=== PATIENT | female | born 1990 | race Caucasian/White ===

== ENCOUNTER → 2016-08-06 | Outpatient (CLI) | payer OTHER ==
[~2016-08-06] MED LIST: PRENTAB40 PO; ZOFR4SOL PO; ZOLO50TA PO
--- NOTE | 2016-08-06 16:56 | REP ---
Obstetric sonography: History: Supervision of for anatomy. Findings: Scanning through the gravid uterus demonstrates a viable single intrauterine gestation in a cephalic lie. motion is observed and heart rate is recorded at 139 beats per minute. An anterior grade 0 placenta is seen without evidence of previa or abruption. Amniotic fluid is subjectively normal. Closed cervical length is 5.6 cm measured transabdominally. No extrauterine abnormality is observed. Exam quality was inhibited by maternal body habitus and position. No anomaly is seen. spine, four-chamber heart and outflow tract views, and facial profile views are less than optimal. The following additional anatomic structures are identified and felt to be sonographically unremarkable: cranium, choroid plexus, cavum, cerebellum and posterior fossa, nose and lips, lungs, diaphragm, left-sided stomach, abdominal wall cord insertion, three-vessel umbilical cord, kidneys and bladder, upper and lower extremities. Biometry chart: BPD 4.4 cm = 19 weeks 1 day HC 16.2 cm = 19 weeks 0 days AC 14.4 cm = 19 weeks 5 days FL 2.8 cm = 18 weeks 5 days HL 2.8 cm = 18 weeks 6 days CD 2.0 cm = 19 weeks 2 days HC/AC ratio normal 1.13. Cephalic index normal 0.75. Estimated weight 280 grams, 0 pounds 9 ounces, 55th percentile for 19 weeks 0 days. Impression: 1. Viable single intrauterine gestation of 19 weeks 1 day by today's composite sonographic criteria. BABS by today's sonography is December 30, 2016. 2. anatomic survey is incomplete regarding facial profile, heart views, and spine evaluation. Signed by Josue Edmonds MD 08/06/2016 05:04 P
== END ==
LOC: M RAD 10:38
PROVIDERS: ATTEND Obstetrics & Gynecology
DX: Z34.82 Encounter for supervision of other normal pregnancy, second trimester (principal)

== ENCOUNTER → 2016-08-29 | Outpatient (CLI) | payer MEDICAID ==
--- NOTE | 2016-08-29 16:36 | REP ---
Obstetric sonography: History: Supervision of , followup anatomy. Comparison study: . Follow-up facial profile heart views and spine evaluation. Findings: Scanning through the gravid uterus demonstrates a viable single intrauterine gestation in a cephalic lie. motion is observed and heart rate is recorded at 147 beats per minute. An anterior grade 1 placenta is seen without evidence of previa or abruption. Amniotic fluid is subjectively normal. Closed cervical length is 3.8 cm. No extrauterine abnormality is observed. There has been appropriate interval growth. The spine is still less than optimally seen due to position. The following additional anatomic structures are identified and felt to be sonographically unremarkable: cranium, choroid plexus, cavum, cerebellum posterior fossa, face and profile, lungs, four-chamber heart with left and right ventricular outflow tract views, diaphragm, left-sided stomach, abdominal wall cord insertion, three-vessel umbilical cord, kidneys and bladder, upper and lower extremities. Biometry chart: BPD 5.4 cm = 22 weeks 3 days Head circumference 20.2 cm = 22 weeks 2 days Abdominal circumference 18.6 cm = 23 weeks 3 days Femur length 3.8 cm = 22 weeks 1 day Humeral length 3.7 cm = 23 weeks 0 days HC/AC ratio normal at 1.09, cephalic index normal 0.74, estimated weight 532 grams, 1 pound 2 ounces, 60th percentile for 22 weeks 2 days. Impression: Viable single intrauterine gestation at 22 weeks 4 days by today's composite sonographic criteria. Expected gestational age estimate based on prior sonography is 22 weeks 3 days. BABS by prior sonography . spine views still less than optimally seen. anatomic survey otherwise complete. Signed by Josue Edmonds MD 08/29/2016 04:50 P
== END ==
LOC: M RAD 14:43
PROVIDERS: ATTEND Obstetrics & Gynecology
DX: Z36 Encounter for antenatal screening of mother (principal); Z3A.22 22 weeks gestation of pregnancy

== ENCOUNTER → 2016-09-02 | Outpatient (CLI) | payer MEDICAID, OTHER ==
[2016-09-02 08:17] LABS: MEAN CORPUSCULAR HGB CONC 33.4 g/dl (32.0-36.5); RED CELL DISTRIBUTION WIDTH 13.7 % (11.5-14.5); WHITE BLOOD COUNT 11.7 K/mm3 (4.0-10.0)
[2016-09-02 08:25] LABS: ALBUMIN 2.9 GM/DL (3.2-5.2); ALBUMIN/GLOBULIN RATIO 0.78 (1.00-1.93); ALKALINE PHOSPHATASE 118 U/L (45-117); ALT/SGPT 19 U/L (12-78); AST/SGOT 8 U/L (15-37); BILIRUBIN,DIRECT 0.1 MG/DL (0.0-0.2); BILIRUBIN,TOTAL 0.5 MG/DL (0.2-1.0); BLOOD UREA NITROGEN 7 MG/DL (7-18); CREATININE FOR GFR 0.44 MG/DL (0.55-1.02); GLOMERULAR FILTRATION RATE > 60.0 (>60); TOTAL PROTEIN 6.6 GM/DL (6.4-8.2); URIC ACID 4.3 MG/DL (2.6-6.0)
== END ==
LOC: M LAB 07:52
PROVIDERS: ATTEND Obstetrics & Gynecology
DX: O99.212 Obesity complicating pregnancy, second trimester (principal)

== ENCOUNTER → 2016-09-02 | Outpatient (CLI) | payer MEDICAID | LOC: M LAB 06:52 | PROVIDERS: ATTEND Obstetrics & Gynecology | DX: Z53.9 Procedure and treatment not carried out, unspecified reason (principal) ==

== ENCOUNTER → 2016-10-14 | Outpatient (CLI) | payer OTHER ==
[~2016-10-14] MED LIST changes: +EYE5SOL OP; +FLON1SPR; +TESS100C PO
--- NOTE | 2016-10-14 11:31 | REP ---
Clinical: Anatomical evaluation. Comparison: 08/29/2016 . Findings: Examination demonstrates a single live intrauterine in cephalic presentation. motion is identified by technologist. Placenta is noted anteriorly and grade one without evidence for placenta previa or abruption. Amniotic fluid volume is normal. Cervix measures 4.8 cm in length and appears closed. No evidence for nuchal cord. Gestational age by LMP 28 weeks 6 days with BABS 12/31/2016 . Gestational age by current measurements 29 weeks 6 days with BABS 12/24/2016 . FHR equals 141 beats per minute. JEANETTE equals 13.4 cm (9.2 - 23.1) Estimated weight 1592 grams ( 82nd percentile). Anatomical assessment demonstrates normal structures including cranium, choroid plexus, cavum, cerebellum/posterior fossa, diaphragm, stomach, three-vessel cord, kidneys/bladder, spine, and lower extremities. Impression: 1. Single live intrauterine in cephalic presentation demonstrating appropriate interval growth. 2. In conjunction with prior examination anatomical assessment is complete and normal. Signed by Sundar Velásquez MD 10/14/2016 11:23 A
== END ==
LOC: M RAD 10:31
PROVIDERS: ATTEND Obstetrics & Gynecology
DX: Z36 Encounter for antenatal screening of mother (principal); Z3A.29 29 weeks gestation of pregnancy

== ENCOUNTER 2016-10-18 04:04 | Emergency (ER) | payer OTHER ==
[~2016-10-18] VITALS: Ht 154.9 cm; Wt 136.1 kg
[~2016-10-18 04:04] MED LIST changes: -EYE5SOL OP; -FLON1SPR; -TESS100C PO
[2016-10-18 04:14] VITALS: BP 132/72
[2016-10-18] MEDS ORDERED: EYE5SOL OP (04:19)
[2016-10-18] MEDS ORDERED: FLON1SPR (06:13)
[2016-10-18] MEDS ORDERED: TESS100C PO (06:13)
== END 2016-10-18 05:20 | disposition left against medical advice (07) ==
LOC: M ED 04:24
DX: H92.09 Otalgia, unspecified ear (principal); Z53.29 Procedure and treatment not carried out because of patient's decision for other reasons

== ENCOUNTER 2016-10-18 05:19 | Emergency (ER) | payer OTHER ==
[~2016-10-18] VITALS: Ht 154.9 cm; Wt 136.1 kg
[~2016-10-18 05:19] MED LIST changes: +EYE5SOL OP
[2016-10-18] MEDS ORDERED: FLON1SPR (06:13)
[2016-10-18] MEDS ORDERED: TESS100C PO (06:13)
[2016-10-18] MEDS ORDERED: BENZONATATE 100 MG CAP PO ONE (06:15)
[2016-10-18 06:22] VITALS: BP 125/71
== END 2016-10-18 06:31 | disposition home or self-care (01) ==
LOC: M ED 05:39
DX: O99.513 Diseases of the respiratory system complicating pregnancy, third trimester (principal); J06.9 Acute upper respiratory infection, unspecified; Z3A.30 30 weeks gestation of pregnancy; Z91.030 Bee allergy status

== ENCOUNTER → 2016-11-06 | Outpatient (CLI) | payer OTHER ==
[~2016-11-06] MED LIST changes: +FLON1SPR; +TESS100C PO
[2016-11-06 14:25] LABS: MEAN CORPUSCULAR HEMOGLOBIN 29.1 pg (27.0-33.0); MEAN CORPUSCULAR HGB CONC 33.3 g/dl (32.0-36.5); MEAN CORPUSCULAR VOLUME 87.2 fl (80.0-96.0); RED CELL DISTRIBUTION WIDTH 13.7 % (11.5-14.5); WHITE BLOOD COUNT 10.7 K/mm3 (4.0-10.0)
[2016-11-06 14:41] LABS: ALBUMIN 2.5 GM/DL (3.2-5.2); ALBUMIN/GLOBULIN RATIO 0.71 (1.00-1.93); ALKALINE PHOSPHATASE 166 U/L (45-117); ALT/SGPT 17 U/L (12-78); AST/SGOT 7 U/L (15-37); BILIRUBIN,DIRECT 0.1 MG/DL (0.0-0.2); BILIRUBIN,TOTAL 0.4 MG/DL (0.2-1.0); BLOOD UREA NITROGEN 4 MG/DL (7-18); CREATININE FOR GFR 0.47 MG/DL (0.55-1.02); GLOMERULAR FILTRATION RATE > 60.0 (>60); URIC ACID 3.5 MG/DL (2.6-6.0)
== END ==
LOC: M LAB 12:23
PROVIDERS: ATTEND Obstetrics & Gynecology
DX: O99.213 Obesity complicating pregnancy, third trimester (principal); Z3A.00 Weeks of gestation of pregnancy not specified

== ENCOUNTER → 2016-11-08 | Outpatient (REF) | payer OTHER ==
[2016-11-08 17:50] LABS: CREATININE, SERUM 0.5 MG/DL (0.6-1.0)
[2016-11-08 19:07] LABS: CREATININE CLEARANCE, URINE 118.2 ML/MIN (75-115)
== END ==
LOC: M LAB REF 16:41
PROVIDERS: ATTEND Obstetrics & Gynecology
DX: O99.213 Obesity complicating pregnancy, third trimester (principal); Z3A.00 Weeks of gestation of pregnancy not specified

== ENCOUNTER → 2016-12-05 | Outpatient (CLI) | payer OTHER ==
--- NOTE | 2016-12-05 12:16 | REP ---
OBSTETRIC SONOGRAPHY: HISTORY: 36-week gestation size versus date discrepancy. FINDINGS: Scanning through the gravid uterus demonstrates a viable single intrauterine gestation in a cephalic lie. motion is observed and heart rate is recorder 137 beats per minute. Anterior grade 3 placenta is seen without evidence of previa. Amniotic fluid is subjectively normal. Closed cervical length is 3.5 cm. No extrauterine abnormality is observed. There has been appropriate interval growth. Exam quality was inhibited to some degree by maternal body habitus. cranium, choroid plexus, cavum, and left-sided stomach are seen. Biometry Chart: BPD 9.0 cm = 36 weeks 4 days HC 32.7 cm = 37 weeks 1 day AC 38.0 cm = more than 6 weeks greater than expected. FL 7.1 cm = 36 weeks 1 day HL 6.3 cm = 36 weeks 2 days HC/AC ratio normal 0.86 Cephalic index normal 0.78. Estimated weight 3825 grams, 8 pounds 6 ounces, greater 97th percentile for 36 weeks 2 days. S/D ratio of the umbilical cord artery by Doppler is normal at 2.39. JEANETTE is normal 9.5 cm IMPRESSION: Viable single intrauterine gestation at 36 weeks 4 days. There is appropriate interval growth. Expected gestational age estimate based on prior sonography is 36 weeks 3 days. BABS by prior sonography December 30, 2016. Limited anatomic visualization. Signed by Josue Edmonds MD 12/05/2016 01:17 P
== END ==
LOC: M RAD 10:34 → M LAB 10:34
PROVIDERS: ATTEND Obstetrics & Gynecology Obstetrics
DX: O26.843 Uterine size-date discrepancy, third trimester (principal); Z3A.36 36 weeks gestation of pregnancy

== ENCOUNTER → 2017-08-20 | Outpatient (REF) | payer OTHER, MEDICAID ==
[2017-08-20 19:35] LABS: BASO # 0.1 10^3/uL (0.0-0.2); BASO % 0.7 % (0.0-1.0); EOS # 0.3 10^3/uL (0.0-0.50); EOS % 3.7 % (0.0-3.0); HEMATOCRIT 38.8 % (36.0-47.0); HEMOGLOBIN 12.4 g/dl (12.0-16.0); IMMATURE GRANULOCYTE % 0.3 % (0-0); LYMPH # 2.5 10^3/uL (1.5-6.5); MEAN CORPUSCULAR HEMOGLOBIN 27.4 pg (27.0-33.0); MEAN CORPUSCULAR VOLUME 85.7 fl (80.0-96.0); MONO # 0.6 10^3/uL (0.0-0.8); MONO % 8.4 % (0.0-5.0); NEUTROPHILS # 4.1 10^3/uL (1.8-7.7); NEUTROPHILS % 53.9 % (36.0-66.0); PLATELET COUNT, AUTOMATED 352 10^3/uL (150-450); RED BLOOD COUNT 4.53 10^6/uL (4.00-5.40); RED CELL DISTRIBUTION WIDTH 12.8 % (11.5-14.5); WHITE BLOOD COUNT 7.7 10^3/uL (4.0-10.0)
[2017-08-20 20:07] LABS: ALBUMIN 3.9 GM/DL (3.2-5.2); ALBUMIN/GLOBULIN RATIO 1.08 (1.00-1.93); ALKALINE PHOSPHATASE 139 U/L (45-117); ALT/SGPT 21 U/L (12-78); ANION GAP 8 MEQ/L (8-16); AST/SGOT 12 U/L (7-37); BILIRUBIN,TOTAL 0.7 MG/DL (0.2-1.0); BLOOD UREA NITROGEN 9 MG/DL (7-18); CALCIUM LEVEL 8.6 MG/DL (8.5-10.1); CARBON DIOXIDE LEVEL 25 MEQ/L (21-32); CHLORIDE LEVEL 108 MEQ/L (98-107); CHOLESTEROL LEVEL 139 MG/DL (<200); CHOLESTEROL RISK RATIO 3.971 (<5); CREATININE FOR GFR 0.61 MG/DL (0.55-1.30); GLOMERULAR FILTRATION RATE > 60.0 (>60); GLUCOSE, FASTING 92 MG/DL (70-100); HDL CHOLESTEROL 35 MG/DL (>40); NON-HDL-C 104 MG/DL; POTASSIUM SERUM 3.8 MEQ/L (3.5-5.1); SODIUM LEVEL 141 MEQ/L (136-145); TOTAL PROTEIN 7.5 GM/DL (6.4-8.2); TRIGLYCERIDES LEVEL 165 MG/DL (<150)
== END ==
LOC: M LAB REF 18:45
DX: Z68.43 Body mass index [BMI] 50.0-59.9, adult (principal); E66.01 Morbid (severe) obesity due to excess calories; D64.9 Anemia, unspecified

== ENCOUNTER → 2017-09-11 | Outpatient (CLI) | payer OTHER | LOC: M SLEEP 19:46 | DX: Z01.811 Encounter for preprocedural respiratory examination (principal); G47.33 Obstructive sleep apnea (adult) (pediatric); G47.61 Periodic limb movement disorder | CPT/HCPCS: 95810 ==

== ENCOUNTER → 2017-11-14 | Outpatient (CLI) | payer MEDICAID, OTHER | LOC: M SLEEP 19:51 | DX: G47.33 Obstructive sleep apnea (adult) (pediatric) (principal) | CPT/HCPCS: 95811 ==

== ENCOUNTER 2018-04-09 23:43 | Emergency (ER) | payer OTHER, MEDICAID ==
[2018-04-10 00:52] LABS: BILIRUBIN, URINE MANUAL NEGATIVE (NEGATIVE); BLOOD URINE MANUAL RFX POSITIVE (NEGATIVE); GLUCOSE, URINE (UA) MANUAL NEGATIVE (NEGATIVE); KETONE, URINE MANUAL NEGATIVE (NEGATIVE); NITRITE, URINE MANUAL RFX NEGATIVE (NEGATIVE); PROTEIN, URINE MANUAL REFLEX 3+ mg/dL (NEGATIVE); SP GRAVITY,URINE MANUAL REFLEX 1.025 (1.002-1.035); UROBILINOGEN, URINE MANUAL NORMAL (NORMAL)
[2018-04-10 00:53] LABS: MICROSCOPIC INDICATED? RFX YES (NO)
[2018-04-10 01:03] LABS: RBC, URINE TNTC /hpf (0-3); SQUAMOUS EPITHELIAL CELL URINE SMALL AMOUNT /hpf (SMALL AMT); WBC, URINE MAN RFX TNTC /hpf (0-3)
[2018-04-10 01:04] LABS: BACTERIA, URINE SMALL AMOUNT; HYALINE CAST, URINE NONE SEEN /lpf (0-1)
[2018-04-10 01:05] LABS: AMORPHOUS SEDIMENT, URINE SMALL AMOUNT (NEGATIVE); MICROSCOPIC EXAM PERFORMED; MUCUS, URINE SMALL AMOUNT (NEGATIVE)
[2018-04-10] MEDS: KETOROLAC 30 MG/ML VIAL (J1885) IV (02:45)
[2018-04-10 03:23] LABS: BASO # 0.1 10^3/uL (0.0-0.2); BASO % 0.5 % (0.0-1.0); EOS # 0.4 10^3/uL (0.0-0.50); EOS % 4.1 % (0.0-3.0); HEMATOCRIT 36.1 % (36.0-47.0); HEMOGLOBIN 11.3 g/dl (12.0-15.5); IMMATURE GRANULOCYTE % 0.2 % (0-3.0); LYMPH # 2.9 10^3/uL (1.5-6.5); LYMPH % 29.8 % (24.0-44.0); MEAN CORPUSCULAR HEMOGLOBIN 27.4 pg (27.0-33.0); MEAN CORPUSCULAR HGB CONC 31.3 g/dl (32.0-36.5); MEAN CORPUSCULAR VOLUME 87.4 fl (80.0-96.0); MONO # 0.9 10^3/uL (0.0-0.8); NEUTROPHILS # 5.4 10^3/uL (1.8-7.7); NEUTROPHILS % 56.4 % (36.0-66.0); PLATELET COUNT, AUTOMATED 304 10^3/uL (150-450); RED BLOOD COUNT 4.13 10^6/uL (4.00-5.40); RED CELL DISTRIBUTION WIDTH 13.3 % (11.5-14.5); WHITE BLOOD COUNT 9.6 10^3/uL (4.0-10.0)
[2018-04-10 03:44] LABS: ALBUMIN 3.9 GM/DL (3.2-5.2); ALBUMIN/GLOBULIN RATIO 1.15 (1.00-1.93); ALKALINE PHOSPHATASE 121 U/L (45-117); ALT/SGPT 35 U/L (12-78); ANION GAP 13 MEQ/L (8-16); AST/SGOT 30 U/L (7-37); BILIRUBIN,DIRECT 0.2 MG/DL (0.0-0.2); BILIRUBIN,TOTAL 0.9 MG/DL (0.2-1.0); BLOOD UREA NITROGEN 11 MG/DL (7-18); CALCIUM LEVEL 8.7 MG/DL (8.5-10.1); CARBON DIOXIDE LEVEL 20 MEQ/L (21-32); CHLORIDE LEVEL 110 MEQ/L (98-107); CREATININE FOR GFR 0.63 MG/DL (0.55-1.30); GLOMERULAR FILTRATION RATE > 60.0 (>60); GLUCOSE, FASTING 88 MG/DL (70-100); LIPASE 69 U/L (73-393); POTASSIUM SERUM 4.1 MEQ/L (3.5-5.1); SODIUM LEVEL 143 MEQ/L (136-145); TOTAL PROTEIN 7.3 GM/DL (6.4-8.2)
[2018-04-10] MEDS: NORCO 5/325MG TABLET (BULK FOR ED) PO (04:11)
== END 2018-04-10 04:26 | disposition home or self-care (01) ==
LOC: M ED 23:43
DX: N30.90 Cystitis, unspecified without hematuria (principal); K80.70 Calculus of gallbladder and bile duct without cholecystitis without obstruction; F32.9 Major depressive disorder, single episode, unspecified; Z98.84 Bariatric surgery status; Z91.030 Bee allergy status; Z88.8 Allergy status to other drugs, medicaments and biological substances; Z79.899 Other long term (current) drug therapy
CPT/HCPCS: 76705

== ENCOUNTER 2018-04-16 20:15 | Emergency (ER) | payer OTHER, MEDICAID | END 2018-04-16 20:58 | disposition home or self-care (01) | LOC: M ED 20:15 | DX: K22.6 Gastro-esophageal laceration-hemorrhage syndrome (principal); Z98.84 Bariatric surgery status; Z79.899 Other long term (current) drug therapy; Z91.030 Bee allergy status; Z88.8 Allergy status to other drugs, medicaments and biological substances | CPT/HCPCS: 99283 ==

== ENCOUNTER → 2018-12-11 | Outpatient (CLI) | payer OTHER ==
[~2018-12-11] MED LIST changes: +BACT800T5 PO; +BUPR150T3; +CITA20TA6; +CVS1CHW13 PO; +FAMO1TAB11
--- NOTE | 2018-12-11 13:05 | REP ---
Clinical: Anatomical evaluation. Comparison: None . Findings: Examination demonstrates a single live intrauterine in breech presentation. motion is identified by technologist. Placenta is noted posterior and grade grade zero without evidence for placenta previa or abruption. Amniotic fluid volume is normal. Cervix measures 2.9 cm in length and appears closed. No evidence for nuchal cord. Gestational age by LMP 18 weeks 1 day with BABS 05/13/1990 . Gestational age by current measurements 18 weeks 4 days with BABS 05/10/2019 . FHR equals 134 beats per minute. BPD 4.2 cm 18 weeks 5 days HC 15.5 cm 18 weeks 3 days AC 12.9 cm 18 weeks 3 days FL 2.8 cm 18 weeks 3 days HL 2.7 cm 18 weeks 4 days HC/AC ratio 1.20 Estimated weight 242 grams ( 61st percentile). Anatomical assessment demonstrates normal structures including cranium, choroid plexus, cavum, lungs, stomach, cord insertion, kidneys/bladder, and extremities. Impression: 1. Single live intrauterine in breech presentation demonstrating appropriate interval growth. 2. Limited evaluation of the posterior fossa, facial features, heart/ventricular outflow tracts, diaphragm, three-vessel cord, and spine warrant reevaluation and follow-up. Electronically Signed by Sundar Velásquez MD 12/11/2018 12:57 P
== END ==
LOC: M RAD 11:43
PROVIDERS: ATTEND Midwife
DX: Z36.89 Encounter for other specified antenatal screening (principal); Z3A.18 18 weeks gestation of pregnancy; O32.1XX0 Maternal care for breech presentation, not applicable or unspecified

== ENCOUNTER 2018-12-13 15:11 | Emergency (ER) | payer OTHER ==
[~2018-12-13] VITALS: Ht 152.4 cm; Wt 119.4 kg
[~2018-12-13 15:11] MED LIST changes: -CVS1CHW13 PO
[2018-12-13 16:12] LABS: BASO # 0.1 10^3/uL (0.0-0.2); BASO % 0.4 % (0.0-1.0); EOS # 0.2 10^3/uL (0.0-0.50); EOS % 1.7 % (0.0-3.0); HEMATOCRIT 34.9 % (36.0-47.0); HEMOGLOBIN 11.2 g/dl (12.0-15.5); LYMPH # 2.8 10^3/uL (1.5-6.5); LYMPH % 24.3 % (24.0-44.0); MEAN CORPUSCULAR HEMOGLOBIN 27.4 pg (27.0-33.0); MEAN CORPUSCULAR HGB CONC 32.1 g/dl (32.0-36.5); MEAN CORPUSCULAR VOLUME 85.3 fl (80.0-96.0); MONO # 0.8 10^3/uL (0.0-0.8); MONO % 7.3 % (0.0-5.0); NEUTROPHILS # 7.5 10^3/uL (1.8-7.7); NEUTROPHILS % 65.9 % (36.0-66.0); PLATELET COUNT, AUTOMATED 343 10^3/uL (150-450); RED BLOOD COUNT 4.09 10^6/uL (4.00-5.40); WHITE BLOOD COUNT 11.3 10^3/uL (4.0-10.0)
[2018-12-13 16:48] LABS: ALBUMIN 3.2 GM/DL (3.2-5.2); ALT/SGPT 12 U/L (12-78); BILIRUBIN,DIRECT 0.1 MG/DL (0.0-0.2); BILIRUBIN,TOTAL 0.5 MG/DL (0.2-1.0); BLOOD UREA NITROGEN 7 MG/DL (7-18); CALCIUM LEVEL 8.9 MG/DL (8.5-10.1); CARBON DIOXIDE LEVEL 25 MEQ/L (21-32); CHLORIDE LEVEL 108 MEQ/L (98-107); CREATININE FOR GFR 0.49 MG/DL (0.55-1.30); GLOMERULAR FILTRATION RATE > 60.0 (>60); GLUCOSE, FASTING 71 MG/DL (70-100); LIPASE 86 U/L (73-393); POTASSIUM SERUM 3.9 MEQ/L (3.5-5.1); SODIUM LEVEL 139 MEQ/L (136-145); TOTAL PROTEIN 6.9 GM/DL (6.4-8.2)
[2018-12-13] MEDS ORDERED: CVS1CHW13 PO (17:01)
--- NOTE | 2018-12-13 19:03 | REPVR ---
EXAM: US Abdomen Limited, Right Upper Quadrant EXAM DATE/TIME: 12/13/2018 6:27 PM CLINICAL HISTORY: 28 years old, female; Abdominal pain; Flank; Right upper quadrant (ruq); ; Additional info: Ruq/epigastric pain TECHNIQUE: Imaging protocol: Real-time ultrasound of the abdomen with image documentation. Examination was focused on the right upper quadrant. COMPARISON: GALLBLADDER US 04/10/2018 2:51 AM FINDINGS: Liver: Unremarkable. Gallbladder: Cholelithiasis without gallbladder wall thickening or pericholecystic fluid. Negative sonographic Barr's sign, as per the softwood faller. Common bile duct: No stones. No ductal dilatation. Pancreas: Unremarkable as visualized. Right kidney: No mass. No definite stones. No hydronephrosis. Uterus: Viable intrauterine gestation with a heart rate of 153 beats per minute. IMPRESSION: 1. Cholelithiasis without sonographic evidence of acute cholecystitis. 2. Additional findings, as above. Electronically signed by: Mitchell Velez On 12/13/2018 19:03:32 PM
[2018-12-13 19:21] VITALS: BP 127/62
== END 2018-12-13 19:34 | disposition home or self-care (01) ==
LOC: M ED 15:11
DX: O26.619 Liver and biliary tract disorders in pregnancy, unspecified trimester (principal); O99.340 Other mental disorders complicating pregnancy, unspecified trimester; O99.840 Bariatric surgery status complicating pregnancy, unspecified trimester; Z79.899 Other long term (current) drug therapy; Z88.6 Allergy status to analgesic agent; Z91.030 Bee allergy status

== ENCOUNTER → 2019-01-08 | Outpatient (CLI) | payer OTHER ==
[~2019-01-08] MED LIST changes: +CVS1CHW13 PO
--- NOTE | 2019-01-08 09:35 | REP ---
Obstetric ultrasound for anatomy follow-up: Comparison is 12/11/2018. The there is a single intrauterine gestation. position is variable. There is movement and cardiac activity. The heart rate is 145 beats per minute. The placenta is posterior. There is no previa or abruptio. The placenta is grade zero maturity. The amniotic fluid volume subjectively is normal. The cervix measures 4.1 cm length. Gestational age by today's ultrasound is 22 weeks 4 days/BABS 05/10/2019. Gestational age by the first ultrasound is 22 weeks 4 days/BABS 05/10/2019. Gestational age by LMP is 22 weeks 1 day/BABS 05/13/2019. weight is 523 grams/1 pound, 2 ounces. This is the 64th percentile for 22 weeks 1 day. The following anatomic structures are identified and are unremarkable: Cranium, choroid plexus, cavum septum pellucidum, intracranial lateral ventricles, cerebellum, upper lip of the, facial profile, lungs, four-chamber heart, cardiac right and left ventricular outflow tracts, diaphragm, stomach, cord insertion, three-vessel cord, bladder and upper lower extremities. The kidneys are suboptimally demonstrated today but were adequately demonstrated previously and were unremarkable. The spine is suboptimally demonstrated because of position. The spine was suboptimally demonstrated previously. A followup study dedicated to the spine might be considered. Otherwise, there are no anomalies. Electronically Signed by Primo Russell MD 01/08/2019 09:27 A
== END ==
LOC: M RAD 07:40
PROVIDERS: ATTEND Midwife
DX: Z34.80 Encounter for supervision of other normal pregnancy, unspecified trimester (principal); Z3A.22 22 weeks gestation of pregnancy

== ENCOUNTER → 2019-04-02 | Outpatient (CLI) | payer OTHER ==
[2019-04-02 16:29] LABS: ALBUMIN 2.7 GM/DL (3.2-5.2); BILIRUBIN,DIRECT 0.2 MG/DL (0.0-0.2); BILIRUBIN,TOTAL 0.5 MG/DL (0.2-1.0); CHOLESTEROL RISK RATIO 2.666 (<5); TOTAL PROTEIN 6.3 GM/DL (6.4-8.2)
== END ==
LOC: M LAB 15:20
PROVIDERS: ATTEND Obstetrics & Gynecology Obstetrics
DX: O99.213 Obesity complicating pregnancy, third trimester (principal); E66.9 Obesity, unspecified; L29.9 Pruritus, unspecified

== ENCOUNTER 2019-05-29 08:22 | Emergency (ER) | payer OTHER ==
[~2019-05-29] VITALS: Ht 152.4 cm; Wt 112.5 kg
[2019-05-29] MEDS ORDERED: VITA500T9 PO (08:28)
[2019-05-29] MEDS ORDERED: GAS EX PO (08:28)
[2019-05-29] MEDS ORDERED: FERR325T3 PO (08:28)
[2019-05-29] MEDS ORDERED: DOCU100C16 PO (08:28)
[2019-05-29] MEDS ORDERED: SERT25TA21 PO (08:28)
[2019-05-29] MEDS ORDERED: NS 1,000 ML IV ONE (08:45)
[2019-05-29] MEDS ORDERED: PANTOPRAZOLE 40MG INJ (PROTONIX) (C9113) IV ONE (09:00)
[2019-05-29] MEDS ORDERED: METOCLOPRAMIDE INJ 10MG/2ML VIAL (J2765) IV ONE (09:00)
[2019-05-29 09:17] LABS: HEMATOCRIT 31.7 % (36.0-47.0); HEMOGLOBIN 9.2 g/dl (12.0-15.5); MEAN CORPUSCULAR HEMOGLOBIN 24.4 pg (27.0-33.0); MEAN CORPUSCULAR VOLUME 84.1 fl (80.0-96.0); PLATELET COUNT, AUTOMATED 436 10^3/uL (150-450); RED BLOOD COUNT 3.77 10^6/uL (4.00-5.40)
[2019-05-29 09:28] LABS: ALBUMIN 3.2 GM/DL (3.2-5.2); ALT/SGPT 21 U/L (12-78); BILIRUBIN,TOTAL 0.5 MG/DL (0.2-1.0); BLOOD UREA NITROGEN 9 MG/DL (7-18); CALCIUM LEVEL 8.5 MG/DL (8.5-10.1); CARBON DIOXIDE LEVEL 26 MEQ/L (21-32); CHLORIDE LEVEL 112 MEQ/L (98-107); CREATININE FOR GFR 0.71 MG/DL (0.55-1.30); GLOMERULAR FILTRATION RATE > 60.0 (>60); GLUCOSE, FASTING 90 MG/DL (70-100); LIPASE 74 U/L (73-393); SODIUM LEVEL 144 MEQ/L (136-145)
--- NOTE | 2019-05-29 09:47 | REP ---
Abdominal right upper quadrant ultrasound for right upper quadrant pain: There are is visible gallbladder calculi packing the gallbladder. There is no gallbladder wall thickening or pericholecystic fluid. There is no intrahepatic or extrahepatic biliary duct dilatation. The common biliary duct measures 5 mm in diameter. The hepatic parenchyma is homogeneous. The liver is mildly enlarged measuring 17 0.3 cm craniocaudad in the midclavicular line. The visualized areas of the pancreas are unremarkable. The right kidney measures 11.7 x 5.5 x 3.7 cm and is normal size. There is no right renal calculus, hydronephrosis, solid mass or cystic mass. There is no right upper quadrant ascites. Impression: Cholelithiasis with numerous small calculi packing the gallbladder. There is no ultrasound evidence of acute cholecystitis or biliary duct dilatation. Mildly enlarged liver. No ascites. Electronically Signed by Primo Russell MD 05/29/2019 09:39 A
[2019-05-29] MEDS ORDERED: ZOFR4TAB16 PO (09:49)
[2019-05-29] MEDS ORDERED: DICY20TA11 PO (09:49)
[2019-05-29] MEDS ORDERED: PROT1TAB2 PO (09:49)
[2019-05-29] MEDS ORDERED: GI COCKTAIL 50ML BTL(HYOSCYAMINE/MAALOX/LIDOCAINE VISCOUS)(1:3:1) PO ONE (10:00)
[2019-05-29] MEDS ORDERED: DICYCLOMINE 10 MG CAP PO ONE (10:00)
[2019-05-29 10:17] VITALS: BP 150/85
== END 2019-05-29 10:16 | disposition home or self-care (01) ==
LOC: M ED 08:22
DX: K80.20 Calculus of gallbladder without cholecystitis without obstruction (principal); R16.0 Hepatomegaly, not elsewhere classified; Z98.84 Bariatric surgery status; Z88.6 Allergy status to analgesic agent; Z91.030 Bee allergy status; Z79.899 Other long term (current) drug therapy
CPT/HCPCS: 76705; 80053; 83690; 84702; 85027; 96374; 96375; 99284; C9113; J2765

== ENCOUNTER 2019-09-11 17:14 | Emergency (ER) | payer OTHER ==
[~2019-09-11] VITALS: Ht 154.9 cm; Wt 115.4 kg
[~2019-09-11 17:14] MED LIST changes: +DICY20TA11 PO; +DOCU100C16 PO; +FERR325T3 PO; +GAS EX PO; +PROT1TAB2 PO; +SERT25TA21 PO; +VITA500T9 PO; +ZOFR4TAB16 PO
--- NOTE | 2019-09-11 18:23 | REPVR ---
PROCEDURE INFORMATION: Exam: US First Trimester, Transabdominal Exam date and time: 09/11/2019 5:59 PM Age: 29 years old Clinical indication: Pain; Other: Vag bleeding; Gestational age or lmp: 6wks2 d; ; Additional info: Vag bleeding, 8w1d by dates TECHNIQUE: Imaging protocol: Real-time transabdominal obstetrical ultrasound of the maternal pelvis and a first trimester , less than 14 weeks 0 days, with image documentation. COMPARISON: No relevant prior studies available. FINDINGS: GESTATION: Gestation: Single gestational sac demonstrated in the uterus. Heart rate: heart rate is 150 bpm. Placenta: Not yet visualized. No subchorionic bleed. Amniotic fluid: Amniotic and coelomic fluid are normal for gestational age. BIOMETRY: Estimated gestational age: Gestational age based on crown-rump length is 7 weeks 4 days. Gestational age based on LMP of 07/29/2019 is 6 weeks 2 days. [place]-Rump length: Single fetus demonstrated with a crown-rump length measuring 1.3 cm. MATERNAL: Uterus: Unremarkable. Cervix: Unremarkable. Right adnexa: There is a small cyst in the right ovary measuring approximately 1.3 by 2.1 by 1.3 cm. Cyst may contain low-level internal echoes suggesting possible hemorrhagic cyst. Left adnexa: Unremarkable. IMPRESSION: Unremarkable 1st trimester gestation at 6 weeks 2 days using crown-rump length measurement. Detailed structural survey can be performed between 19-20 weeks if clinically desired. Electronically signed by: Jimmy Sprague On 09/11/2019 18:22:50 PM
[2019-09-11 18:39] LABS: BASO % 0.3 % (0.0-1.0); EOS # 0.3 10^3/uL (0.0-0.5); EOS % 2.5 % (0.0-3.0); HEMATOCRIT 34.5 % (36.0-47.0); HEMOGLOBIN 10.2 g/dl (12.0-15.5); MEAN CORPUSCULAR HEMOGLOBIN 22.3 pg (27.0-33.0); MEAN CORPUSCULAR HGB CONC 29.6 g/dl (32.0-36.5); MEAN CORPUSCULAR VOLUME 75.3 fl (80.0-96.0); MONO # 0.9 10^3/uL (0.0-0.8); MONO % 7.9 % (0.0-5.0); NEUTROPHILS # 6.8 10^3/uL (1.5-8.5); NEUTROPHILS % 61.8 % (36.0-66.0); PLATELET COUNT, AUTOMATED 394 10^3/uL (150-450); RED BLOOD COUNT 4.58 10^6/uL (4.00-5.40)
[2019-09-11 19:15] LABS: BLOOD UREA NITROGEN 6 MG/DL (7-18); CALCIUM LEVEL 9.1 MG/DL (8.5-10.1); CARBON DIOXIDE LEVEL 25 MEQ/L (21-32); CHLORIDE LEVEL 108 MEQ/L (98-107); CREATININE FOR GFR 0.49 MG/DL (0.55-1.30); GLOMERULAR FILTRATION RATE > 60.0 (>60); GLUCOSE, FASTING 71 MG/DL (70-100); HCG, SERUM QUANTITATIVE 92546 MIU/ML; POTASSIUM SERUM 3.6 MEQ/L (3.5-5.1); SODIUM LEVEL 138 MEQ/L (136-145)
[2019-09-11 20:01] VITALS: BP 118/64
== END 2019-09-11 20:02 | disposition home or self-care (01) ==
LOC: M ED 17:14
DX: O26.859 Spotting complicating pregnancy, unspecified trimester (principal); O99.210 Obesity complicating pregnancy, unspecified trimester; O99.840 Bariatric surgery status complicating pregnancy, unspecified trimester; Z3A.00 Weeks of gestation of pregnancy not specified; Z88.8 Allergy status to other drugs, medicaments and biological substances; Z91.030 Bee allergy status; Z79.899 Other long term (current) drug therapy

== ENCOUNTER → 2019-11-12 | Outpatient (REF) | payer OTHER, MEDICAID ==
[~2019-11-12] MED LIST changes: -EYE5SOL OP; +TETR15DR2 OP
[2019-11-12 18:11] LABS: HEMATOCRIT 32.8 % (36.0-47.0); HEMOGLOBIN 10.2 g/dl (12.0-15.5); MEAN CORPUSCULAR HEMOGLOBIN 24.6 pg (27.0-33.0); MEAN CORPUSCULAR HGB CONC 31.1 g/dl (32.0-36.5); PLATELET COUNT, AUTOMATED 342 10^3/uL (150-450); RED BLOOD COUNT 4.15 10^6/uL (4.00-5.40); WHITE BLOOD COUNT 9.2 10^3/uL (4.0-10.0)
[2019-11-12 20:50] LABS: CHLAMYDIA DNA AMPLIFICATION NEGATIVE (NEGATIVE); GC DNA AMPLIFICATION NEGATIVE (NEGATIVE)
[2019-11-12 23:33] LABS: RUBELLA IgG QUALITATIVE IMMUNE (IMMUNE)
[2019-11-15 10:49] LABS: HEPATITIS B SURFACE ANTIGEN NEGATIVE (NEGATIVE); HEPATITIS C VIRUS ABY INDEX 0.1 INDEX (<0.8); HIV 1&2 SCREEN CENTAUR NEGATIVE (NEGATIVE)
== END ==
LOC: M PLALAB 13:25
PROVIDERS: ATTEND Specialist
DX: Z34.01 Encounter for supervision of normal first pregnancy, first trimester (principal)

== ENCOUNTER → 2019-11-18 | Outpatient (REF) | payer OTHER | LOC: M LAB REF 17:23 | PROVIDERS: ATTEND Advanced Practice Midwife | DX: O99.212 Obesity complicating pregnancy, second trimester (principal) ==

== ENCOUNTER → 2019-12-16 | Outpatient (CLI) | payer OTHER, MEDICAID ==
--- NOTE | 2019-12-16 19:43 | REP ---
Clinical: Anatomical evaluation. Comparison: 09/11/2019 . Findings: Examination demonstrates a single live intrauterine in breech presentation. motion is identified by technologist. Placenta is noted posterior and grade I without evidence for placenta previa or abruption. Amniotic fluid volume is normal. Cervix measures 3.3 cm in length and appears closed. No evidence for nuchal cord. Gestational age by LMP 20 weeks 0 days with BABS 05/04/2020 . Gestational age by current measurements 21 weeks 4 days with BABS 04/23/2020 . FHR equals 142 beats per minute. Estimated weight 495 grams (> 97% based on age by LMP). Anatomical assessment demonstrates normal structures including cranium, choroid plexus, cavum, cerebellum/posterior fossa, facial features, lungs, four-chamber heart/ventricular outflow tracts, diaphragm, stomach, cord insertion/three-vessel cord, kidneys/bladder, spine, and extremities. Impression: 1. Single live intrauterine in breech presentation. 2. Greater than expected weight noted based on age by LMP . 3. Anatomical assessment is complete and normal.
== END ==
LOC: M WHC 09:11
PROVIDERS: ATTEND Advanced Practice Midwife
DX: O99.212 Obesity complicating pregnancy, second trimester (principal)

== ENCOUNTER → 2020-04-04 | Outpatient (REF) | payer OTHER, MEDICAID ==
[~2020-04-04] MED LIST changes: +FERR32TA PO; +PERCOCET PO; +PRENTAB55 PO; +TETR15DR16 OP; -TETR15DR2 OP
== END ==
LOC: M SFHCWAGY 13:10
PROVIDERS: ATTEND Specialist
DX: Z34.83 Encounter for supervision of other normal pregnancy, third trimester (principal); Z3A.00 Weeks of gestation of pregnancy not specified

== ENCOUNTER → 2020-04-05 | Outpatient (CLI) | payer OTHER ==
--- NOTE | 2020-04-21 07:50 | REP ---
LIMITED OBSTETRICAL ULTRASOUND CLINICAL: Growth evaluation. COMPARISON: 12/16/2019. FINDINGS: Ultrasound examination demonstrates a single live intrauterine in cephalic presentation. motion was identified by the technologist. Placenta noted posteriorly and grade 2 without evidence for placenta previa or abruption. Amniotic fluid volume is upper limits of normal. Cervix measures 3.1 cm in length and appears closed. Gestational age by last menstrual period (LMP) 35 weeks 5 days with estimated date of delivery 05/05/2020. Gestational age by current measurements 36 weeks 6 days with estimated date of delivery 04/27/2020. heart rate 143 beats per minute. Amniotic fluid index: 22.2 cm. BIOMETRIC MEASUREMENTS: BPD 8.9 cm 36 weeks 1 day HC 33.0 cm 37 weeks 4 days AC 33.8 cm 37 weeks 5 days FL 7.1 cm 36 weeks 2 days HL 6.3 cm 36 weeks 3 days HC/AC ratio 0.97 estimated weight 3140 grams 85th percentile based on age by LMP IMPRESSION: * Single live advanced gestation in cephalic presentation demonstrating appropriate growth and estimated weight. * Amniotic fluid volume is upper limits of normal range and early polyhydramnios cannot be excluded. MTDD
== END ==
LOC: M WHC 14:27
PROVIDERS: ATTEND Obstetrics & Gynecology
DX: O40.3XX0 Polyhydramnios, third trimester, not applicable or unspecified (principal); Z3A.35 35 weeks gestation of pregnancy; O26.843 Uterine size-date discrepancy, third trimester

== ENCOUNTER 2020-04-15 01:21 | Inpatient (IN) | payer OTHER, MEDICAID ==
[~2020-04-15] VITALS: Ht 154.9 cm; Wt 130.0 kg
[2020-04-15] VITALS (8 sets, daily range): BP systolic 119–147; BP diastolic 61–90
[~2020-04-15 01:21] MED LIST changes: -PERCOCET PO
[2020-04-15] MEDS ORDERED: LACTATED RINGER'S 1000 ML IV STA (02:57)
[2020-04-15] MEDS ORDERED: LR 1,000 ML IV SCH ×3 (02:57→07:00)
[2020-04-15] MEDS ORDERED: BICITRA 30ML SOLN UDC PO ONE (03:00)
[2020-04-15] MEDS ORDERED: ceFAZolin SOD 2 GM in IV 1 EA IV ONE ×2 (03:00→03:45)
[2020-04-15] MEDS ORDERED: AZITHROMYCIN INJ 500 MG, VIAL MATE ADAPTER 1 EACH in D5W 250 ML IV ONE (03:00)
[2020-04-15] MEDS ORDERED: ceFAZolin 1GM VIAL (J0690 PER 500MG) As Ordered ONE (03:15)
--- NOTE | 2020-04-15 03:20 | HPEPDOC ---
Obstetrical History & Physical General Date of Admission April 15, 2020 History of Present Illness Chief Complaint: Contractions, term, section (Repeat) Information Provided By: Patient Age: 29 : 5 Term: 3 Pre-term: 0 Abortions: 1 Livin Care Care: Good Care Dating Final EDC: May 04, 2020 Final EDC by: 2nd trimester (US) ([facility], U/S 12/16/19) EGA at Admission: 37.1 Antepartum Course Height (inches): 61 Admission Weight (lbs.): 286 Past Medical History Past Obstetrical History #1: Past Obstetrical History: Primgravida (04/2014) Date of Delivery: May 16, 2014 Type of Delivery: Ceserean section Sex of Infant: Male (11#8oz) Complications: No Past Obstetrical History #2: Past Obstetrical History: Multigravida (12/2013) Date of Delivery: Dec 25, 2016 Type of Delivery: Ceserean section Sex of Infant: Female (85#14oz) Past Obstetrical History #3: Past Obstetrical History: Multigravida (04/2019) Date of Delivery: May 06, 2019 Type of Delivery: Ceserean section Sex of : Female (9#9oz) SMALL STOCK FACER History: Other (Molar at 20yo) Past Medical History Medical History Anxiety, Depression, PTSD Surgical History: Other (Gastric Bypass 02/2018) Family History Significant Family History: No pertinent family hx Social History Marital Status: Family situation: Spouse/partner home Psychosocial History: Anxiety, Depression, PTSD * Smoker: non-smoker Alcohol: Denies Drugs: denies Abuse Violence Screening Have you been hit/kicked/slapp: No Have you been sexually assault: No Imunizations Influenza Status: needs Allergies Coded Allergies: NSAIDS (Non-Steroidal Anti-Inflamma (Verified Allergy, Unknown, hx gastric bypass, 04/15/20) bee venom protein (honey bee) (Verified Allergy, Unknown, swelling, 04/15/20) Medications Scheduled Ferrous Gluconate (Ferrous Gluconate) 324 Mg Tablet, 324 MG PO BID [id number]/Iron Fum/Folic/Docusate ( 19 Tablet) 1 Each Tablet, 1 TAB PO DAILY Sertraline HCl (Sertraline HCl) 25 Mg Tablet, 100 MG PO DAILY Physical Examination Physical Examination GENERAL: Alert and oriented times three. BREAST: . ABDOMEN: Gravid and non-tender to touch. FETUS: Is vertex (VTX) by sterile vaginal examination (SVE), fetus is vertex (VTX) by Raghav. HEART RATE: Regular rate and rhythm. LUNGS: Clear to auscultation (CTA). EXTREMITIES: No edema. No clonus. Deep tendon reflexes (DTRs) + 2. Vital Signs/I&O Vital Signs Date Time Temp Pulse Resp B/P (MAP) Pulse Ox O2 Delivery O2 Flow Rate FiO2 04/15/20 02:07 97.3 90 18 134/63 (86) Pertinent Laboratoy Data Blood Type: O+ RBC Antibody Screen: Negative HIV: Negative Hepatitis B: Negative Hepatitis C: Negative Rapid Plasma Reagin: Nonreactive Rubella: Immune Varicella: Unknown Chlamydia/Gonorrhea: Negative Group B Streptococcus: Negative Anatomy Ultrasound Ultrasound Date: December 16, 2019 Placenta Location: Posterior Normal Anatomy: Yes Placenta Previa: No Estimated Weight (grams): 495 Steroid Therapy Steroid Therapy: No Vaginal Examination Dilation: 5 cm Effacement: 90% Station: -2 Cervical Consistency: Soft Cervical Position: Posterior Assessment Heart Rate (FHR): 135 Variability: Increased Accelerations: Present Decelerations: None Tocometer Contractions: Yes (Difficulty tracing contractions due to maternal movement, observed contractions) Frequency: regular Duration: less than 90 seconds Strength: palpated as moderate Multi-drug resistant Organism: No history of MDRO Assessment/Plan Assessment Violette is a 29-year-old (G)5 para (P)3-0-1-3 at 37+1 weeks by 21.4- week ultrasound. Presents to Labor and Delivery (L&D) in active labor. Contractions started at approximately midnight tonight. Denies LOF, VB. She is not tolerating contractions well, crying through contractions. Plan Admit and orient. Animal Husbandry Technician and consent. Per Consult with Dr. Caicedo. Diet: NPO. Group B Streptococcus (GBS) negative. Labs and intravenous (IV) per unit protocol. Counseled on Repeat C/Section. Lactated Ringers (LR): Bolus 1000 mL, then at 125 mL/hr. Anticipate Repeat C/Section. Livia Fraser CNM Apr 15, 2020 03:20
--- NOTE | 2020-04-15 03:32 | IPNPDOC ---
Text Note Date of Service The patient was seen on 04/15/20. NOTE Section consent Violette is a 29yo with SIUP at 37w1d presenting to L&D with painful ctx and noted to be 5cm. She has history of 3 prior sections, the first was for macrosomia (11lb+). Her hx is significant for prior gastric bypass, morbid obesity, PTSD/anxiety/depression, and she did not complete fingerstick glucose testing in this and her recent growth scan was 87%ile with polyhydramnios. Vitals wnl Cat I FHRT I consented Violette for RLTCS and possible blood transfusion. She declines BTL. Discussed all r/b/a and signed the consent forms. Ancef 3g IV x1 Bicitra Anesthesia and nursing team are aware of plan and we will proceed to OR as soon as ready Dr. Orin Caicedo MD VS,Kory, I+O VS, Kory, I+O Vital Signs Date Time Temp Pulse Resp B/P (MAP) Pulse Ox O2 Delivery O2 Flow Rate FiO2 04/15/20 02:07 97.3 90 18 134/63 (86) Orin Caicedo MD Apr 15, 2020 03:32
[2020-04-15 03:36] LABS: HEMATOCRIT 25.6 % (36.0-47.0); HEMOGLOBIN 7.2 g/dl (12.0-15.5); MEAN CORPUSCULAR HEMOGLOBIN 20.4 pg (27.0-33.0); MEAN CORPUSCULAR HGB CONC 28.1 g/dl (32.0-36.5); MEAN CORPUSCULAR VOLUME 72.5 fl (80.0-96.0); PLATELET COUNT, AUTOMATED 260 10^3/uL (150-450); RED BLOOD COUNT 3.53 10^6/uL (4.00-5.40); WHITE BLOOD COUNT 8.9 10^3/uL (4.0-10.0)
[2020-04-15] MEDS ORDERED: ceFAZolin SOD 1 GM in D5W MINI-BAG PLUS 50 ML IV ONE (03:45)
[2020-04-15] MEDS ORDERED: diphenhydrAMINE 50MG/ML VIAL (J1200) IV ONE (04:15)
[2020-04-15] MEDS ORDERED: ONDANSETRON 4MG/2ML VIAL IV PRN ×3 (04:27→07:00)
[2020-04-15] MEDS ORDERED: diphenhydrAMINE 50MG/ML VIAL (J1200) IV PRN (04:27)
[2020-04-15] MEDS ORDERED: NALOXONE INJ 0.4MG/1ML VIAL (J2310 PER 1MG) IV PRN ×2 (04:27)
[2020-04-15] MEDS ORDERED: METOCLOPRAMIDE INJ 10MG/2ML VIAL (J2765 PER 1) IV PRN ×2 (04:27→07:00)
[2020-04-15] MEDS ORDERED: NALBUPHINE HCL 10 MG/ML AMP (J2300) IV PRN (04:27)
[2020-04-15] MEDS ORDERED: OXYTOCIN INJ 10 UNITS/ML VIAL (J2590) As Ordered ONE (04:32)
[2020-04-15] MEDS ORDERED: MORPHINE PRES-FREE INJ 10 MG/10 ML VIAL (J2274) As Ordered ONE (04:32)
[2020-04-15] MEDS ORDERED: ONDANSETRON 4MG/2ML VIAL As Ordered ONE (04:37)
[2020-04-15] MEDS ORDERED: ePHEDrine SULFATE 25 MG/5 ML(5MG/ML) SYRINGE As Ordered ONE (04:57)
[2020-04-15] MEDS ORDERED: ACETAMINOPHEN 1000MG 100ML IV BTL (OFIRMEV) (J0131 PER 10MG) As Ordered ONE (05:29)
[2020-04-15] MEDS ORDERED: fentaNYL 100 MCG/2 ML INJECTION (J3010) As Ordered ONE (05:41)
[2020-04-15] MEDS ORDERED: OXYTOCIN DRIP 30 UNITS in IV 1 EA IV SCH (06:10)
[2020-04-15] MEDS ORDERED: MEASLES,MUMPS,RUBELLA VACCINE INJ (MMR-II) (90707) SC SCH (06:15)
[2020-04-15] MEDS ORDERED: RHOGAM 300 MCG (1500 IU) INJ (J2790) IM SCH (06:15)
[2020-04-15] MEDS ORDERED: PERCOCET 5MG/325MG TAB PO PRN (06:15)
--- NOTE | 2020-04-15 06:21 | DNPDOC ---
[facility] Delivery Note Delivery Note DATE OF DELIVERY: 04/15/2020 Time of delivery: 0509 PREDELIVERY DIAGNOSIS: 37w1d gestation and labor with history of 3 prior sections POST DELIVERY DIAGNOSIS: Delivered. PROCEDURE: Repeat low transverse section SET ILLUSTRATOR: Dr. Orin Caicedo MD ANESTHESIA: spinal ESTIMATED BLOOD LOSS: 700 mL. IVF: 1700ml LR UOP: 40ml FINDINGS: 10 pound 5 ounce female , Score 8/9 DELIVERY SUMMARY: Violette is a 29yo [id number] who presented to L&D with painful ctx and noted to be 5cm at 37w1d. She has history of 3 prior sections, the first was for macrosomia (11lb+). Her hx is also significant for prior gastric bypass, morbid obesity, PTSD/anxiety/depression, and she did not complete fingerstick glucose testing in this and her recent growth scan was 87%ile with polyhydramn ios. Finally, she had anemia with noted Hgb on admission 7.2, so she was transfused 2u pRBCs intra-operatively. Patient underwent uncomplicated RLTCS, she had declined BTL. Dr. Nix kindly assisted. Please see dictated operative report for further details. MD Sascha Escalante Katrina D MD Apr 15, 2020 06:21
[2020-04-15] MEDS ORDERED: OXYTOCIN 30 UNITS IN 0.9% NaCl 500ML IV BAG (J2590) As Ordered ONE (06:39)
[2020-04-15] MEDS ORDERED: fentaNYL 100 MCG/2 ML INJECTION (J3010) IV PRN (07:00)
[2020-04-15] MEDS ORDERED: oxyCODONE 5MG TAB PO PRN (07:00)
[2020-04-15] MEDS ORDERED: PERCOCET 5MG/325MG TAB As Ordered ONE (07:14)
[2020-04-15] MEDS: PERCOCET 5MG/325MG TAB PO PRN ×4 (07:18→22:08)
[2020-04-15] MEDS: PRENATAL VITAMINS CHEWABLE TABLET PO SCH (12:21)
[2020-04-15] MEDS: DOCUSATE SODIUM 100MG CAPSULE PO SCH ×2 (12:21→20:40)
[2020-04-15 12:42] LABS: HEMATOCRIT 25.8 % (36.0-47.0); HEMOGLOBIN 7.7 g/dl (12.0-15.5); MEAN CORPUSCULAR HEMOGLOBIN 22.2 pg (27.0-33.0); MEAN CORPUSCULAR HGB CONC 29.8 g/dl (32.0-36.5); MEAN CORPUSCULAR VOLUME 74.4 fl (80.0-96.0); PLATELET COUNT, AUTOMATED 218 10^3/uL (150-450); RED BLOOD COUNT 3.47 10^6/uL (4.00-5.40); WHITE BLOOD COUNT 11.1 10^3/uL (4.0-10.0)
[2020-04-15] MEDS: SERTRALINE 100 MG TAB PO SCH (13:27)
[2020-04-15] MEDS: FERROUS SULFATE 325MG TAB PO SCH ×3 (20:40→20:59)
[2020-04-16 02:00] VITALS: BP 121/84
[2020-04-16] MEDS: PERCOCET 5MG/325MG TAB PO PRN ×4 (04:09→22:39)
[2020-04-16 06:45] VITALS: BP 147/75
[2020-04-16 07:31] LABS: HEMATOCRIT 26.9 % (36.0-47.0); HEMOGLOBIN 7.9 g/dl (12.0-15.5); MEAN CORPUSCULAR HEMOGLOBIN 21.9 pg (27.0-33.0); MEAN CORPUSCULAR HGB CONC 29.4 g/dl (32.0-36.5); MEAN CORPUSCULAR VOLUME 74.5 fl (80.0-96.0); PLATELET COUNT, AUTOMATED 236 10^3/uL (150-450); RED BLOOD COUNT 3.61 10^6/uL (4.00-5.40); WHITE BLOOD COUNT 9.7 10^3/uL (4.0-10.0)
--- NOTE | 2020-04-16 08:42 | IPNPDOC ---
Progress Note Date of Service: Apr 16, 2020 Day#: 1 Progress Note PPD1 SUBJECT: Violette is a 29yo [id number] who presented in active labor at 37w1d with history of 3 prior sections, and underwent uncomplicated RLTCS. Doing well on POD1. Her hx is significant for prior gastric bypass, morbid obesity, PTSD/anxiety/depression. Finally, she had anemia with noted Hgb on admission 7.2, so she was transfused 2u pRBCs intra-operatively. She has been ambulating, voiding spontaneously without issue and tolerating regular diet. Baby is in NICU 2/2 sugars (macrosomic) and she is bottle feeding per preference. Reports lochia is scant. Pain overall well controlled with percocet (cannot tolerate motrin 2/2 hx gastric bypass). Denies f/c/n/v/CP/SOB. OBJECTIVE: VITAL SIGNS: Within normal limits, afebrile. Alert and oriented times three. Abdomen: Obese. Fundus firm at U-2. Soft, appropriately tender to palpation. Pfannensteil incision covered by dry, clean dressing. Extremities: trace edema of BLE Labs: pre-op H/H 7.2/25.6 first post-op H/H 7.7/25.8 repeat post-op H/H 7.9/26.9 ASSESSMENT: Violette is a 29yo [id number] who presented in active labor at 37w1d with history of 3 prior sections, and underwent uncomplicated RLTCS. Doing well on POD1. Vitals within normal limits, afebrile, hemodynamically stable with no evidence of infection. PLAN: 1. Routine /post-op care 2. Percocet for pain. 3. Encourage visitation of baby in NICU, formula feeding 4. Regular diet 5. Encourage use of IS and ambulation. Ok to remove IVs 6. Ok to shower today, keep optifoam dressing in place 7. Likely discharge home tomorrow Orin Caicedo MD VS, I&O, 24H, Fishbone Vital Signs/I&O Vital Signs Date Time Temp Pulse Resp B/P (MAP) Pulse Ox O2 Delivery O2 Flow Rate FiO2 04/16/20 06:45 96.9 97 20 147/75 (99) 96 Room Air I&O- Last 24 Hours up to 6 AM 04/16/20 06:00 Output Total 2935 ml Balance -2935 ml Laboratory Data 24H LABS Laboratory Tests 2 04/15/20 12:25: Nucleated Red Blood Cells % (auto) 0.0 04/16/20 07:03: Nucleated Red Blood Cells % (auto) 0.0 CBC/BMP Laboratory Tests 04/15/20 12:25 04/16/20 07:03 Orin Caicedo MD Apr 16, 2020 08:16
[2020-04-16] MEDS ORDERED: BOOSTRIX/ADACEL VACCINE (DIPHTH/PERTUSS/ACELL/TETANUS) 0.5ML SYR IM ONE (09:00)
[2020-04-16 10:00] VITALS: BP_SYST 12; BP_SYST 127; BP_DIAS 79
[2020-04-16] MEDS: SERTRALINE 100 MG TAB PO SCH (10:06)
[2020-04-16] MEDS: PRENATAL VITAMINS CHEWABLE TABLET PO SCH (10:06)
[2020-04-16] MEDS: DOCUSATE SODIUM 100MG CAPSULE PO SCH ×2 (10:06→20:20)
[2020-04-16] MEDS: FERROUS SULFATE 325MG TAB PO SCH ×2 (10:06→20:20)
[2020-04-16 14:00] VITALS: BP 141/72
[2020-04-16] MEDS ORDERED: MORPHINE 2 MG/ML 1ML VIAL (J2270) IV ONE (17:30)
[2020-04-16 18:00] VITALS: BP 135/85
[2020-04-16 22:00] VITALS: BP 137/90
[2020-04-17 02:00] VITALS: BP_SYST 113; BP_SYST 140; BP_DIAS 77; BP_DIAS 88
[2020-04-17] MEDS: PERCOCET 5MG/325MG TAB PO PRN ×4 (04:42→23:23)
[2020-04-17 05:59] VITALS: BP 133/89
[2020-04-17] MEDS: PRENATAL VITAMINS CHEWABLE TABLET PO SCH (08:33)
[2020-04-17] MEDS: SERTRALINE 100 MG TAB PO SCH (08:33)
[2020-04-17] MEDS: DOCUSATE SODIUM 100MG CAPSULE PO SCH ×2 (08:33→20:18)
[2020-04-17] MEDS: FERROUS SULFATE 325MG TAB PO SCH ×2 (08:33→20:18)
--- NOTE | 2020-04-17 09:00 | IPNPDOC ---
Progress Note Date of Service: Apr 17, 2020 Day#: 2 Progress Note PPD2 SUBJECT: Violette is a 29yo [id number] who presented in active labor at 37w1d with history of 3 prior sections, and underwent uncomplicated RLTCS. Doing well on POD2. Her hx is significant for prior gastric bypass, morbid obesity, PTSD/anxiety/depression. Finally, she had anemia with noted Hgb on admission 7.2, so she was transfused 2u pRBCs intra-operatively. She has been ambulating, voiding spontaneously without issue and tolerating regular diet. Baby is in NICU 2/2 sugars (macrosomic) and she is bottle feeding per preference. Reports lochia is scant. Pain overall well controlled with percocet (cannot tolerate motrin 2/2 hx gastric bypass). She has showered and slept well last night, so feels much improved today. K pad helps. Denies f/c/n/v/CP/SOB. OBJECTIVE: VITAL SIGNS: Within normal limits, afebrile. Alert and oriented times three. Abdomen: Obese. Fundus firm at U-2. Soft, appropriately tender to palpation. Pfannensteil incision covered by dry, clean dressing. Extremities: trace edema of BLE Labs: pre-op H/H 7.2/25.6 first post-op H/H 7.7/25.8 repeat post-op H/H 7.9/26.9 ASSESSMENT: Violette is a 29yo [id number] who presented in active labor at 37w1d with history of 3 prior sections, and underwent uncomplicated RLTCS. Doing well on POD2. Vitals within normal limits, afebrile, hemodynamically stable with no evidence of infection. PLAN: 1. Routine /post-op care 2. Percocet for pain. 3. Encourage visitation of baby in NICU, formula feeding 4. Regular diet 5. Encourage use of IS and ambulation 6. Ok to shower, keep optifoam dressing in place 5 total days 7. Plan for discharge home tomorrow vs boarding status if baby still in NICU. Rx for percocet and colace sent to her pharmacy, I instructed her to pick them up today so she can take her meds tomorrow if boarding status- he agrees to do so. Orin Caicedo MD VS, I&O, 24H, Fishbone Vital Signs/I&O Vital Signs Date Time Temp Pulse Resp B/P (MAP) Pulse Ox O2 Delivery O2 Flow Rate FiO2 04/17/20 05:59 97.1 88 17 133/89 (104) 95 Room Air Orin Caicedo MD Apr 17, 2020 09:00
[2020-04-17 18:00] VITALS: BP 138/80
[2020-04-18] MEDS: PERCOCET 5MG/325MG TAB PO PRN ×2 (05:26→11:28)
[2020-04-18 05:53] VITALS: BP 159/82
[2020-04-18] MEDS ORDERED: PERCOCET PO (07:26)
[2020-04-18] MEDS ORDERED: DOCU100C16 PO (07:26)
[2020-04-18] MEDS: SERTRALINE 100 MG TAB PO SCH (08:09)
[2020-04-18] MEDS: PRENATAL VITAMINS CHEWABLE TABLET PO SCH (08:09)
[2020-04-18] MEDS: FERROUS SULFATE 325MG TAB PO SCH (08:09)
[2020-04-18] MEDS: DOCUSATE SODIUM 100MG CAPSULE PO SCH (08:09)
--- NOTE | 2020-04-24 10:19 | RO ---
DATE OF OPERATION: 04/15/2020 PREOPERATIVE DIAGNOSES: 1. Active labor in the setting of three prior sections. 2. Morbid obesity. 3. History of gastric bypass. 4. Anemia. 5. Posttraumatic stress disorder. 6. Anxiety and depression. 7. Polyhydramnios. POSTOPERATIVE DIAGNOSES: 1. Active labor in the setting of three prior sections. 2. Morbid obesity. 3. History of gastric bypass. 4. Anemia. 5. Posttraumatic stress disorder. 6. Anxiety and depression. 7. Polyhydramnios. 8. Delivered. PROCEDURE: Repeat low transverse section. SURGEON: Dr. Orin Caicedo PULPIT OPERATOR: Dr. Marta Nix CLINICAL SERVICE: Obstetrics. MATERIAL FORWARDED TO THE LABORATORY FOR EXAMINATION: None. DESCRIPTION OF FINDINGS: A female in occiput transverse (OT) position. scores 8 and 9. Weight 4680 grams, or 10 pounds 5 ounces. Normal-appearing uterus, fallopian tubes, and ovaries. Infection classification 2. Estimated blood loss 700 mL. INTRAVENOUS FLUIDS: 1700 mL of lactated Ringer's. URINE: 40 mL. INDICATION FOR OPERATION: Violette is a 29-year-old G5, now P4-0-1-4, who presented to labor and delivery at 37 weeks, 1 day in active labor with regular painful contractions, cervix 5 cm. She has a history of three prior sections. Also significant to her history, she has anemia and on admission was noted to have hemoglobin of 7.2, so she was transfused 2 units of packed red blood cells intraoperative preemptively. Her history is also significant for morbid obesity with a history of prior gastric bypass. She did not complete glucose testing in her , but her fasting glucose on admission was 73. History also significant for posttraumatic stress disorder (PTSD), anxiety, depression. She was previously on Zoloft but self-discontinued it, and in this she had size greater than dates. She had a growth scan 10 days prior to presentation, which showed 87th percentile, 6 pounds 9 ounces, and polyhydramnios. Amniotic index (JEANETTE) of 22. Her history is, finally, significant for prior macrosomia. Her first section was done for an 11+ pound . DESCRIPTION OF OPERATION: After obtaining informed consent, the patient was taken to the operating room. She had a category 1 heart rate tracing prior. Dias catheter and bilateral sequential compression devices were placed after she received spinal anesthesia. She was prepped and draped in normal sterile fashion in the dorsal supine position with a left lateral tilt. Traxie was applied to lift up the pannus. Time-out was performed to confirm patient name, date of , procedure, and indication. Team was in agreement. She received 3 grams of IV Ancef, and she was in the process of receiving 2 units of packed red blood cells. Spinal anesthesia was found to be adequate using an Allis clamp. Pfannenstiel skin incision was made through the prior incision line with the scalpel, carried through to the underlying layer of fascia. Fascia was incised in the midline, and the incision was extended laterally with Smith scissors. Superior and inferior aspects of the fascial incision were grasped with Raz clamps, elevated, and the underlying rectus muscles were dissected off bluntly and sharply. Peritoneum was entered digitally, and rectus muscles were in the midline. The peritoneal incision was extended superiorly and inferiorly with good visualization of the bladder. At that point, the Mobius retractor was inserted, and I attempted to make a bladder flap, but the peritoneum at that layer was too thin, so we pushed the bladder down as best as possible. Next, the lower uterine segment was scored in a transverse fashion with the scalpel. Uterus was entered bluntly, and the incision was extended with traction. There was copious fluid given her history of polyhydramnios. Infant's head was elevated to the level of the incision. Fundal pressure was applied, and the head was delivered atraumatically in OT position. Anterior shoulder, posterior shoulder, and corpus were delivered without difficulty. Nose and mouth were suctioned with bulb suction, and cord was clamped times two and cut. Infant was handed off to the awaiting team. Cord blood was obtained for maternal blood type O positive. Placenta was removed manually. Uterus was left in situ and cleared of all clot and debris. Uterine incision was repaired with O Vicryl suture in a running- locking fashion. A second layer of 0 Monocryl was used to close the hysterotomy incision in an imbricating fashion. Uterine incision was inspected, and hemostasis was noted. Uterus was returned to the abdomen. Gutters were noted to have no clots. Peritoneum was closed using 3-0 Vicryl suture in a running fashion. Rectus muscles were naturally reapproximated. There was significant scarring in that layer. The fascia was reapproximated with 0 Vicryl suture in a running fashion. Subcutaneous tissue was copiously irrigated. Christopher's fascia was reapproximated using 3-0 Vicryl suture in a running fashion in two layers. Skin edges were reapproximated using three inverted interrupted stitches using 3-0 Vicryl suture followed by a running subcuticular stitch using 4-0 Monocryl. Incision was cleaned using a wet lap and dried with a dry lap. Steri-Strips were applied in the usual fashion perpendicular to the Pfannenstiel incision, and Optifoam dressing was applied over that. Vagina was cleared of all blood clot without active bleeding noted. Fundus was firm at U minus 1 cm. All counts were correct times two. Procedure was without complications, and the patient tolerated the procedure well. She was taken to the recovery room on labor and delivery in stable condition. VERONICA
--- NOTE | 2020-05-29 12:09 | DS.PDOC ---
Discharge Summary General Date of Admission Apr 15, 2020 at 02:55 Date of Discharge 04/18/20 Attending Physician: Orin Caicedo MD Discharge Summary Late entry 04/18/20 PROCEDURES PERFORMED DURING STAY: Repeat section ADMITTING DIAGNOSES: 1. IUP at 37.1 weeks gestation in active labor. 2. prior section x3 3. Anemia 4. History of gastric bypass 5. PTSD, anxiety, depression 6. Polyhydramnios DISCHARGE DIAGNOSES: 1. Repeat section. COMPLICATIONS/CHIEF COMPLAINT: LABOR. HISTORY OF PRESENT ILLNESS: Violette is a 29-year-old female who is now a who presented to L&D in active labor at 37.1 weeks gestation. Due to her anemia intrapartum she received 2 units of PRBC in the operating room. She had a repeat section of a live weighting 10 lbs 5 oz-4680 grams with APGARS: 8/9. EBL 700 ml. She has been ambulating and voiding without difficulty. DISCHARGE MEDICATIONS: Please see below. ALLERGIES: Please see below. PHYSICAL EXAMINATION ON DISCHARGE: VITAL SIGNS: Please see below. GENERAL: Appears comfortable and not in distress. RESPIRATORY EXAMINATION: Regular rate with no use of accessory muscles. ABDOMINAL EXAMINATION: FF with uterus 2 below umbilicus. Dressing is intact. SKIN: warm, dry without lesions or rash NEUROLOGICAL EXAMINATION: A+Ox3 LABORATORY DATA: Please see below. ACTIVITY: As tolerated. Pelvic rest. DIET: regular DISCHARGE INSTRUCTIONS: 1. Patient discharged to home with precautions. 2. Instructed to remove bandage in 2 more days. Reviewed signs and symptoms of infection and reviewed cleaning and maintaining/care of incision. 3. Medications sent to pharmacy: Percocet and Motrin. 4. Reviewed signs of mastitis, infection, depression, DVTs, hemorrhage, pelvic rest and pain management. 5. Instructed to make appointment for 2 weeks for incision check or sooner if needed and 6-8 weeks . DISCHARGE CONDITION: Stable. Vital Signs/I&Os Vital Signs Label Value Date Time Patient Temperature 98.9 degrees F 04/17/20 1800 Pulse 90 04/17/20 1800 Respiratory Rate 18 bpm 04/17/20 1800 Blood Pressure Assessment 138/80 (99) 04/17/20 1800 Source Automatic Cuff (NIBP) Bedside Pulse Oximetry 97 % 04/17/20 1800 Patient Temperature 97.9 degrees F 04/18/20 0553 Temperature Source Temporal 04/18/20 05 Pulse 89 04/18/20 05 Respiratory Rate 19 bpm 04/18/20 05 Blood Pressure Assessment 159/82 (107) 04/18/20 05 Source Automatic Cuff (NIBP) Bedside Pulse Oximetry 97 % 04/18/20 05 Laboratory Data CBC/BMP Item Value Date Time White Blood Count 9.7 10^3/uL 04/16/20702 Red Blood Count 3.61 10^6/uL L 04/16/20 07 Hemoglobin 7.9 g/dl L 04/16/20 07 Hematocrit 26.9 % L 04/16/20702 Mean Corpuscular Volume 74.5 fl L 04/16/20702 Mean Corpuscular Hemoglobin 21.9 pg L 04/16/20702 Mean Corpuscular Hemoglobin Concent 29.4 g/dl L 04/16/20702 Red Cell Distribution Width 17.3 % H 04/16/20702 Platelet Count 236 10^3/uL 04/16/20 07 Discharge Medications Scheduled Ferrous Gluconate (Ferrous Gluconate) 324 Mg Tablet, 324 MG PO BID, (Reported) [id number]/Iron Fum/Folic/Docusate ( 19 Tablet) 1 Each Tablet, 1 TAB PO DAILY, (Reported) Sertraline HCl (Sertraline HCl) 25 Mg Tablet, 100 MG PO DAILY, (Reported) Scheduled PRN Docusate Sodium (Docusate Sodium) 100 Mg Capsule, 100 MG PO BIDP PRN for CONSTIPATION Oxycodone/Acetaminophen (Oxycodone-Acetaminophen 5-325) 1 Each Tablet, 1 TAB PO Q6HP PRN for PAIN Allergies Coded Allergies: NSAIDS (Non-Steroidal Anti-Inflamma (Verified Allergy, Unknown, hx gastric bypass, 04/15/20) bee venom protein (honey bee) (Verified Allergy, Unknown, swelling, 04/15/20) IVÁN ROME CNM May 29, 2020 12:09
== END 2020-04-18 16:25 | disposition home or self-care (01) | DRG 540 ==
LOC: M LDO 01:21 → M LDI 02:55 → M OBS 08:04
PROVIDERS: ADMIT Advanced Practice Midwife; ATTEND Advanced Practice Midwife
PROC: 10D00Z1 Extraction of Products of Conception, Low, Open Approach (ICD-10-PCS; 2020-04-15)
PROC: 3E0234Z Introduction of Serum, Toxoid and Vaccine into Muscle, Percutaneous Approach (ICD-10-PCS; principal; 2020-04-15 04:11)
DX: O34.211 Maternal care for low transverse scar from previous cesarean delivery (principal); O40.3XX0 Polyhydramnios, third trimester, not applicable or unspecified; Z37.0 Single live birth; Z3A.37 37 weeks gestation of pregnancy; Z88.6 Allergy status to analgesic agent; Z91.030 Bee allergy status; D64.9 Anemia, unspecified; O99.02 Anemia complicating childbirth

== ENCOUNTER → 2021-11-19 | Outpatient (CLI) | payer OTHER, MEDICAID ==
[~2021-11-19] MED LIST changes: +BUPR150T12; -BUPR150T3; -DICY20TA11 PO; +DICY20TA20 PO; +DULO1CAP5; +HYDR-4571 PO; +PERCOCET PO; -TETR15DR16 OP; +TETR15DR2 OP
== END ==
LOC: M PLALAB 09:40
PROVIDERS: ATTEND Specialist
DX: N92.6 Irregular menstruation, unspecified (principal)

== ENCOUNTER 2021-11-20 11:00 | Emergency (ER) | payer MEDICAID, OTHER ==
[~2021-11-20] VITALS: Ht 152.4 cm; Wt 123.9 kg
[~2021-11-20 11:00] MED LIST changes: -DULO1CAP5; -HYDR-4571 PO
[2021-11-20] MEDS ORDERED: DULO1CAP5 (11:48)
[2021-11-20 13:03] LABS: BASO # 0.1 10^3/uL (0.0-0.2); BASO % 0.7 % (0.0-1.0); EOS # 0.4 10^3/uL (0.0-0.5); EOS % 3.7 % (0.0-3.0); HEMATOCRIT 30.4 % (36.0-47.0); HEMOGLOBIN 8.7 g/dl (12.0-15.5); LYMPH # 2.1 10^3/uL (1.5-5.0); LYMPH % 21.3 % (24.0-44.0); MEAN CORPUSCULAR HEMOGLOBIN 19.8 pg (27.0-33.0); MEAN CORPUSCULAR HGB CONC 28.6 g/dl (32.0-36.5); MEAN CORPUSCULAR VOLUME 69.1 fl (80.0-96.0); MONO # 0.9 10^3/uL (0.0-0.8); MONO % 8.6 % (2.0-8.0); NEUTROPHILS # 6.5 10^3/uL (1.5-8.5); NEUTROPHILS % 65.3 % (36.0-66.0); PLATELET COUNT, AUTOMATED 495 10^3/uL (150-450); WHITE BLOOD COUNT 9.9 10^3/uL (4.0-10.0)
[2021-11-20 13:42] LABS: BLOOD UREA NITROGEN 8 MG/DL (7-18); CALCIUM LEVEL 9.4 MG/DL (8.5-10.1); CARBON DIOXIDE LEVEL 25 MEQ/L (21-32); CHLORIDE LEVEL 106 MEQ/L (98-107); CREATININE FOR GFR 0.44 MG/DL (0.55-1.30); GLOMERULAR FILTRATION RATE > 60.0 (>60); GLUCOSE, FASTING 101 MG/DL (70-100); HCG, SERUM QUANTITATIVE 11008 MIU/ML; POTASSIUM SERUM 4.1 MEQ/L (3.5-5.1); SODIUM LEVEL 140 MEQ/L (136-145)
[2021-11-20] MEDS ORDERED: MORPHINE 4 MG/ML 1ML VIAL/SYRINGE IV ONE (13:45)
[2021-11-20] MEDS ORDERED: HYDR-4571 PO (15:27)
[2021-11-20 15:41] VITALS: BP 147/70
[2021-11-22] MEDS ORDERED: CEFD300C PO (09:33)
== END 2021-11-20 15:44 | disposition home or self-care (01) ==
LOC: M ED 11:00
DX: O03.9 Complete or unspecified spontaneous abortion without complication (principal); N93.9 Abnormal uterine and vaginal bleeding, unspecified; F32.A Depression, unspecified; Z98.84 Bariatric surgery status; Z88.6 Allergy status to analgesic agent; Z91.030 Bee allergy status
CPT/HCPCS: 76801; 76817; 80048; 81001; 84702; 85025; 86850; 86900; 86901; 87088; 87186; 96374; 99283; J2270

== ENCOUNTER → 2023-01-03 | Outpatient (REF) | payer OTHER ==
[~2023-01-03] MED LIST changes: +CEFD300C PO; +DULO1CAP5; +HYDR-4571 PO
== END ==
LOC: M LAB REF 11:14
PROVIDERS: ATTEND Physician Assistant
DX: J02.9 Acute pharyngitis, unspecified (principal)